=== PATIENT | male | born 2000 | race African-American/Black ===

== ENCOUNTER 2023-07-20 01:21 | Emergency (ER) | payer MEDICAID ==
[~2023-07-20] VITALS: Ht 175.3 cm; Wt 132.0 kg
[2023-07-20 01:42] VITALS: BP 147/101; PULSE 71; RESP 18; TEMP 97.6; O2SAT 100
[2023-07-20] MEDS ORDERED: IBUPROFEN 600MG TABLET PO ONE (05:30)
[2023-07-20] MEDS ORDERED: IBUP-2029 MT (06:21)
== END 2023-07-20 07:11 | disposition home or self-care (01) ==
LOC: ER 01:32
DX: S00.33XA Contusion of nose, initial encounter (principal); X58.XXXA Exposure to other specified factors, initial encounter; Y93.89 Activity, other specified; Y92.89 Other specified places as the place of occurrence of the external cause; Y99.8 Other external cause status
CPT/HCPCS: 70486; 99284